=== PATIENT | male | born 1965 | race Caucasian/White ===

== ENCOUNTER → 2018-09-19 | Outpatient (CLI) | payer BC ==
[2018-09-19 12:58] LABS: EOS # 0.3 (0.04-0.40); EOS % 2.6 % (0.0-4.0); HEMATOCRIT 46.3 % (42.0-52.0); HEMOGLOBIN 15.4 g/dL (13.5-18.0); LYMPH# 2.3 (1.50-4.00); MEAN CELL VOLUME 93 fl (78-100); MEAN CORPUSCULAR HEMOGLOBIN 31 pg (27-31); MEAN CORPUSCULAR HGB CONC 33 g/dL (33-37); MEAN PLATELET VOLUME 9.7 fl (7.4-10.4); MONO # 0.9 (0.20-0.80); NEU # 6.5 (1.40-6.50); PLATELET COUNT 219 K/mm3 (130-400); RED BLOOD COUNT 4.98 M/mm3 (4.20-5.60); RED CELL DISTRIBUTION WIDTH 13.5 % (11.5-14.5)
[2018-09-19 13:13] LABS: ALBUMIN 4.3 g/dL (3.5-5.0); POTASSIUM 4.3 mmol/L (3.6-5.0); TOTAL BILIRUBIN 0.5 mg/dL (0.2-1.3); TOTAL PROTEIN 7.2 g/dL (6.3-8.2)
[2018-09-19 13:28] LABS: URINE APPEARANCE CLEAR; URINE BILIRUBIN NEGATIVE (NEGATIVE); URINE BLOOD NEGATIVE (NEGATIVE); URINE COLOR YELLOW; URINE GLUCOSE NEGATIVE (NEGATIVE); URINE KETONE NEGATIVE (NEGATIVE); URINE LEUKOCYTE ESTERASE NEGATIVE (NEGATIVE); URINE NITRATE NEGATIVE (NEGATIVE); URINE PROTEIN(semi-quant) NEGATIVE (NEGATIVE); URINE UROBILINOGEN NORMAL (NORMAL); URINE WBC 0-1 /hpf (0-3)
[2018-09-19 14:16] LABS: ERYTHROCYTE SEDIMENTATION RATE 6 mm/hr (0-20)
[2018-09-19 22:23] LABS: TESTOSTERONE 440 ng/dL (221-716)
== END ==
LOC: LAB 12:44
PROVIDERS: Internal Medicine
DX: Z00.00 Encounter for general adult medical examination without abnormal findings (principal); Z12.5 Encounter for screening for malignant neoplasm of prostate

== ENCOUNTER → 2021-04-04 | Outpatient (CLI) | payer BC ==
[~2021-04-04] VITALS: Ht 182.9 cm; Wt 99.1 kg
[2021-04-04 15:30] VITALS: BP 126/99
== END ==
LOC: RAD 12:51 → AMSURD 12:51
DX: R10.9 Unspecified abdominal pain (principal)

== ENCOUNTER → 2021-11-04 | Outpatient (CLI) | payer BC ==
[2021-11-04 11:30] LABS: BASO # 0.02 K/mm3 (0.02-0.10); EOS # 0.14 K/mm3 (0.04-0.40); EOS % 3.5 % (0.0-4.0); HEMATOCRIT 26.5 % (42.0-52.0); HEMOGLOBIN 8.7 g/dL (13.5-18.0); LYMPH# 1.27 K/mm3 (1.50-4.00); MEAN CELL VOLUME 88 fl (78-100); MEAN CORPUSCULAR HEMOGLOBIN 29 pg (27-31); MEAN CORPUSCULAR HGB CONC 33 g/dL (33-37); MEAN PLATELET VOLUME 9.1 fl (7.4-10.4); MONO # 0.48 K/mm3 (0.20-0.80); NEU # 2.07 K/mm3 (1.40-6.50); PLATELET COUNT 132 K/mm3 (130-400); RED BLOOD COUNT 3.03 M/mm3 (4.20-5.60); RED CELL DISTRIBUTION WIDTH 14.1 % (11.5-14.5)
[2021-11-04 11:45] LABS: POTASSIUM 3.8 mmol/L (3.5-5.1)
[2021-11-04 11:47] LABS: CALCIUM 8.8 mg/dL (8.3-10.5)
[2021-11-04 11:53] LABS: MAGNESIUM 1.49 mg/dL (1.60-2.60)
== END ==
LOC: LAB 11:19
PROVIDERS: Internal Medicine
DX: E83.42 Hypomagnesemia (principal)

== ENCOUNTER → 2021-11-11 | Outpatient (CLI) | payer BC ==
[2021-11-11 08:58] LABS: HEMATOCRIT 27.5 % (42.0-52.0); HEMOGLOBIN 8.9 g/dL (13.5-18.0); MEAN CELL VOLUME 89 fl (78-100); MEAN CORPUSCULAR HEMOGLOBIN 29 pg (27-31); MEAN CORPUSCULAR HGB CONC 32 g/dL (33-37); MEAN PLATELET VOLUME 8.7 fl (7.4-10.4); PLATELET COUNT 195 K/mm3 (130-400); WHITE BLOOD COUNT 4.4 K/mm3 (4.8-10.8)
[2021-11-11 08:59] LABS: BASO # 0.03 K/mm3 (0.02-0.10); EOS # 0.12 K/mm3 (0.04-0.40); EOS % 2.7 % (0.0-4.0); LYMPH# 1.66 K/mm3 (1.50-4.00); MONO # 0.45 K/mm3 (0.20-0.80); NEU # 2.13 K/mm3 (1.40-6.50)
[2021-11-11 09:13] LABS: ALBUMIN 3.1 g/dL (3.5-5.0); POTASSIUM 4.6 mmol/L (3.5-5.1)
[2021-11-11 09:14] LABS: CALCIUM 9.4 mg/dL (8.3-10.5)
[2021-11-11 09:15] LABS: TOTAL PROTEIN 5.9 g/dL (6.4-8.3)
[2021-11-11 09:17] LABS: TOTAL BILIRUBIN 0.3 mg/dL (0.2-1.2)
[2021-11-11 09:21] LABS: MAGNESIUM 1.83 mg/dL (1.60-2.60)
== END ==
LOC: LAB 08:38
PROVIDERS: Internal Medicine
DX: C43.9 Malignant melanoma of skin, unspecified (principal)

== ENCOUNTER 2021-12-14 15:14 | Outpatient (RCR) | payer BC ==
[2021-12-14 15:26] VITALS: BP 103/67
[2021-12-14 16:03] LABS: BASO # 0.02 K/mm3 (0.02-0.10); EOS # 0.19 K/mm3 (0.04-0.40); EOS % 5.2 % (0.0-4.0); HEMATOCRIT 32.6 % (42.0-52.0); HEMOGLOBIN 10.7 g/dL (13.5-18.0); LYMPH# 0.99 K/mm3 (1.50-4.00); MEAN CELL VOLUME 89 fl (78-100); MEAN CORPUSCULAR HEMOGLOBIN 29 pg (27-31); MEAN CORPUSCULAR HGB CONC 33 g/dL (33-37); MEAN PLATELET VOLUME 10.5 fl (7.4-10.4); MONO # 0.45 K/mm3 (0.20-0.80); NEU # 1.97 K/mm3 (1.40-6.50); PLATELET COUNT 128 K/mm3 (130-400); RED BLOOD COUNT 3.65 M/mm3 (4.20-5.60); RED CELL DISTRIBUTION WIDTH 15.3 % (11.5-14.5); WHITE BLOOD COUNT 3.6 K/mm3 (4.8-10.8)
[2021-12-14 16:31] LABS: ALBUMIN 3.6 g/dL (3.5-5.0)
[2021-12-14 16:32] LABS: POTASSIUM 4.5 mmol/L (3.5-5.1)
[2021-12-14 16:33] LABS: CALCIUM 11.4 mg/dL (8.3-10.5)
[2021-12-14 16:34] LABS: TOTAL PROTEIN 6.9 g/dL (6.4-8.3)
[2021-12-14 16:36] LABS: TOTAL BILIRUBIN 0.5 mg/dL (0.2-1.2)
[2021-12-14 16:49] VITALS: BP 95/67
[2021-12-14 17:43] VITALS: BP 93/57
== END 2021-12-20 | disposition home or self-care (01) ==
LOC: AMSURD
PROVIDERS: Internal Medicine
DX: C43.9 Malignant melanoma of skin, unspecified (principal)
CPT/HCPCS: J7030

== ENCOUNTER → 2021-12-17 | Outpatient (CLI) | payer BC ==
[2021-12-17 12:16] LABS: BASO # 0.04 K/mm3 (0.02-0.10); EOS # 0.17 K/mm3 (0.04-0.40); EOS % 5.3 % (0.0-4.0); HEMATOCRIT 31.4 % (42.0-52.0); HEMOGLOBIN 10.1 g/dL (13.5-18.0); LYMPH# 1.28 K/mm3 (1.50-4.00); MEAN CELL VOLUME 91 fl (78-100); MEAN CORPUSCULAR HEMOGLOBIN 29 pg (27-31); MEAN CORPUSCULAR HGB CONC 32 g/dL (33-37); MEAN PLATELET VOLUME 9.3 fl (7.4-10.4); MONO # 0.37 K/mm3 (0.20-0.80); NEU # 1.34 K/mm3 (1.40-6.50); PLATELET COUNT 134 K/mm3 (130-400); RED BLOOD COUNT 3.47 M/mm3 (4.20-5.60); RED CELL DISTRIBUTION WIDTH 14.9 % (11.5-14.5); WHITE BLOOD COUNT 3.2 K/mm3 (4.8-10.8)
[2021-12-17 12:25] LABS: ALBUMIN 3.3 g/dL (3.5-5.0); POTASSIUM 4.5 mmol/L (3.5-5.1)
[2021-12-17 12:26] LABS: CALCIUM 11.3 mg/dL (8.3-10.5)
[2021-12-17 12:28] LABS: TOTAL PROTEIN 6.3 g/dL (6.4-8.3)
[2021-12-17 12:29] LABS: TOTAL BILIRUBIN 0.4 mg/dL (0.2-1.2)
== END ==
LOC: LAB 12:00
PROVIDERS: Internal Medicine
DX: C43.59 Malignant melanoma of other part of trunk (principal)

== ENCOUNTER → 2021-12-30 | Outpatient (CLI) | payer BC | LOC: RAD 08:49 | DX: C43.59 Malignant melanoma of other part of trunk (principal); R91.1 Solitary pulmonary nodule | CPT/HCPCS: Q9967 ==

== ENCOUNTER → 2022-05-25 | Outpatient (CLI) | payer BC ==
[~2022-05-25] MED LIST: DECADRON 4MG TAB4 MG PO
== END ==
LOC: RAD 08:41
DX: C43.59 Malignant melanoma of other part of trunk (principal); K44.9 Diaphragmatic hernia without obstruction or gangrene
CPT/HCPCS: Q9967